=== PATIENT | female | born 1965 | race Caucasian/White ===

== ENCOUNTER 2022-04-20 19:56 | Emergency (ER) | payer SELFPAY ==
[2022-04-20 20:01] VITALS: BP 165/80; PULSE 115; RESP 18; TEMP 36.9; O2SAT 95; BMI 31.1
[2022-04-20] MEDS: predniSONE 20 mg Tablet 60 MG PO (23:08)
[2022-04-20 23:29] VITALS: PULSE 98; RESP 16; O2SAT 95
--- NOTE | 2022-04-21 00:26 | W.ED.GENADLT ---
HPI - General Adult General: Chief complaint: General Medical Stated complaint: joint pain Time Seen by Provider: 04/20/22 22:26 Source: patient and family Mode of arrival: ambulatory Limitations: no limitations History of Present Illness: Patient presents emergency department tonight accompanied by her for evaluation and treatment of recurrence and flareup of previous autoimmune issues. Patient states that she has been seen and evaluated by an autoimmune/visitor services specialist in [place] for several years. Patient states originally she was diagnosed with lupus however, with more investigation, was diagnosed with something the patient is unsure of the name of. She states it is not a polyarthralgia diagnosis but rather the spaces between her joints. Patient states that she was chronically on allopurinol as well as hydroxychloroquine. She states she took these medications for years however, back when COVID first started she was having difficulty getting in to see her warble saw operator and, she was not having any flareups decided to stop her medication. Patient states she has been off these medications now for approximately 2 years and had no previous issues up until approximately 3 days ago. Patient states she noticed onset of achiness which has worsened today. Patient reports a flareup similar to that of which she has experienced in the past she denies any monoarticular arthralgia, redness, pain, or fever. Review of Systems General: Reports: 10 or more systems reviewed and unremarkable except in HPI and below Musc: Reports: extremity pain, extremity swelling, muscle cramps and muscle weakness Physical Exam Const: COMMON NORMALS: no acute distress, patient oriented x3 and alert HENMT: COMMON NORMALS: normocephalic, atraumatic and hearing grossly normal bilaterally HEAD & SCALP: normocephalic and atraumatic Eye: COMMON NORMALS: Equal, round and reactive pupils present, EOMs intact bilaterally and conjunctivae normal CONJUNCTIVA: Yes conjunctivae normal PUPIL: Yes Equal, round and reactive pupils present Neck/C-Spine: COMMON NORMALS: full ROM and no JVD Lymph: LYMPHATIC: no lymphadenopathy noted Resp: COMMON NORMALS: normal respiratory effort, No retractions and No use of accessory muscles Cardio: COMMON NORMALS: no JVD and regular rate RATE: regular rate Extremity: NARRATIVE EXTREMITY EXAM: Patient has some generalized edema noted in her distal upper arms. There is also some faint erythema noted on the skin. Patient appears stiff in her movements here in the ER and does not want to move however, has myalgia on exam versus arthralgia. Patient has full range of motion to the neck. Patient is weightbearing and ambulatory with discomfort noted. Neuro: COMMON NORMALS: patient oriented x3 SENSORIUM/ORIENTATION: Yes alert Psych: COMMON NORMALS: mental status grossly normal, Normal thought process present, cooperative and normal affect THOUGHT PROCESS: Normal thought process present Skin: COMMON NORMALS: no rashes or lesions noted and turgor normal GENERAL SKIN EXAM: no rashes or lesions noted and turgor normal Course Vital Signs: Vital signs: Vital Signs Temperature 98.4 F 04/20/22 20:01 Pulse Rate 98 04/20/22 23:29 Respiratory Rate 16 04/20/22 23:29 Blood Pressure 165/80 04/20/22 20:01 Pulse Oximetry 95 04/20/22 23:29 Oxygen Delivery Me thod 04/20/22 20:01 MDM - General Adult Medical Decision Making They are upPatient presents to the emergency department today with complaints of of underlying, chronic autoimmune disorder. Patient admits she stopped taking her medication and has not seen her warble saw operator in quite some time. I did discuss the patient's case with Dr. Ordoñez who agreed that a burst of steroids to help calm the immune response is appropriate today as she can call her warble saw operator office tomorrow to discuss a follow-up appointment or getting back on her medications. Patient appears nontoxic. I am not concerned for any signs of a septic joint at this time. Patient shows no other sign of illness concerning for influenza or sepsis. Differential Diagnosis Septic joint, myalgias/arthralgias due to influenza or other viral illness, dehydration, rhabdomyolysis, RA, OA Discharge Plan Discharge Patient Disposition: Home Clinical Impression: Myalgia, Hx of autoimmune disorder Condition: Stable Prescriptions: New prednisone 20 mg tablet See Rx Instructions .ROUTE .COMPLEX Qty: 30 0RF Rx Instructions: take 3 tabs daily for 5 days, then take 2 tabs daily for 5 days, then take one tab daily until gone. Discharge Orders: Discharge ED (Routine); Ordered 04/20/22 Ordered By: Sury Terry Referrals: Farideh Faith APN [Primary Care Provider] - Discharge Diet: Usual diet Discharge Activity: Increase activity as tolerated Patient Instructions: Autoimmune Disease (ED) Activity Restrictions/Additional Instructions: Call your warble saw operator as soon as possible to get in for a follow-up appointment. Take this steroid burst to help with the bodies overreaction response which is causing you your pain and discomfort. Watch for any new onset fever or single joint swelling, redness, or significant decrease in range of motion. Coding Level of Care Code ED Military Source Operations Officer for Susanna Trujillo
== END 2022-04-20 23:29 | disposition home or self-care (01) ==
PROVIDERS: Emergency Provider Physician Assistant; PCP Nurse Practitioner Family
DX: M79.10 Myalgia, unspecified site (principal); D89.89 Other specified disorders involving the immune mechanism, not elsewhere classified
CPT/HCPCS: 99283; J7512

== ENCOUNTER 2023-05-13 14:17 | Emergency (ER) | payer OTHER, SELFPAY ==
[2023-05-13 14:23] VITALS: BP 176/114; PULSE 110; RESP 16; TEMP 36.4; O2SAT 98; BMI 34.3
--- NOTE | 2023-05-13 14:41 | ED_ITS ---
Documented by User: JACI Olguin 05/13/23 18:06 HPI - Abdominal Pain 2 General: Chief Complaint: Abdominal Pain Stated Complaint: right side abd pain Time Seen by Provider: 05/13/23 14:34 History of Present Illness: 58-year-old female comes in today with c omplaints of right upper quadrant pain. On exam patient's abdomen is soft with some right upper quadrant tenderness. Patient was referred to the emergency room from primary care and urgent care for further imaging and evaluation. Patient reports no fever, mild nausea, no vomiting, no diarrhea or constipation. Patient has had hysterectomy, appendicitis, and gallbladder removal. Patient reports no chronic medical problems. Associated Symptoms: Reports nausea; Denies constipation, diarrhea and vomiting Review of Systems 2 General: Reports: 10 or more systems reviewed and unremarkable except in HPI and below Card: Denies: chest pain Resp: Denies: dyspnea GI: Reports: abdominal pain and nausea; Denies: vomiting, diarrhea or constipation : Denies: difficulty voiding Musc: Denies: neck pain or back pain Skin/Breast: Denies: rash Physical Exam 2 Const: COMMON NORMALS: alert HENMT: COMMON NORMALS: normocephalic HEAD & SCALP: normocephalic THROAT: posterior oropharynx normal Neck/C-Spine: COMMON NORMALS: full ROM Resp: COMMON NORMALS: normal respiratory effort and clear to auscultation bilaterally AUSCULTATION: clear to auscultation bilaterally Cardio: COMMON NORMALS: regular rate and regular rhythm RATE: regular rate RHYTHM: regular rhythm GI: COMMON NORMALS: Soft to palpation AUSCULTATION: Yes normoactive bowel sounds PALPATION: Yes Soft to palpation and Yes Tenderness to palpation present (GI) Details: RUQ Back/Pelvis: COMMON NORMALS: thoracic and lumbar spine normal to inspection Extremity: COMMON NORMALS: normal to inspection Neuro: SENSORIUM/ORIENTATION: Yes alert Skin: COMMON NORMALS: turgor normal GENERAL SKIN EXAM: turgor normal Course 2 Vital Signs: Vital signs: Vital Signs Temperature 97.6 F 05/13/23 14:23 Pulse Rate 110 H 05/13/23 14:23 Respiratory Rate 16 05/13/23 14:23 Blood Pressure 176/114 05/13/23 14:23 Pulse Oximetry 98 05/13/23 14:23 Oxygen Delivery Me thod Room Air 05/13/23 14:23 MDM - Abdominal Pain Medical Decision Making 58-year-old female comes in today with complaints of right upper quadrant abdominal pain. On exam patient's abdomen is soft with some tenderness in the right upper quadrant. No CVA tenderness. No spinal tenderness. Lungs are clear to auscultation. Bowel sounds are present throughout. Vital signs are normal except for the elevated blood pressure. Differential diagnosis includes but not limited to bowel obstruction, muscle strain, hernia, choledocholithiasis, renal calculi. CBC showed some mild leukocytosis at 11,000. CMP was unremarkable. Urinalysis was clean. CT of the abdomen and pelvis without contrast noted some diverticulosis, some left hip bursitis, but no signs of severe infection or abscess. Reviewed exam with patient with recommendations for treatment and follow-up. I believe patient's pain probably is related to her diverticulosis and she has maybe a mild flare that is not being evident on the CT with signs of infection. Recommend Tylenol and ibuprofen and lots of fluids. Patient reported understanding of care plan need for follow-up or return to the ER for worsening symptoms. Lab Data 05/13/23 14:52 05/13/23 14:52 Labs/Radiology: Radiology Impressions Abdomen/Pelvis CT 05/13/23 17:20 IMPRESSION: 1. No evidence of acute abnormality in the abdomen or pelvis within limitations of a noncontrast exam. Laboratory Results WBC 11.79 10^3/uL (3.29-11.43) H 05/13/23 14:52 RBC 5.11 10^6/uL (3.85-5.65) 05/13/23 14:52 Hgb 15.80 g/dL (11.27-16.99) 05/13/23 14:52 Hct 48.1 % (36-47) H 05/13/23 14:52 MCV 94.1 fl (85-98) 05/13/23 14:52 MCH 30.9 pg (27-33) 05/13/23 14:52 MCHC 32.8 g/dL (30-55) 05/13/23 14:52 RDW 12.4 % (12.1-15.1) 05/13/23 14:52 Plt Count 360 10^3/cmm (157-399) 05/13/23 14:52 MPV 9.1 fL (7.4-10.4) 05/13/23 14:52 Neut % (Auto) 67.6 % 05/13/23 14:52 Lymph % (Auto) 23.1 % 05/13/23 14:52 [place] % (Auto) 7.2 % 05/13/23 14:52 Eos % (Auto) 1.5 % 05/13/23 14:52 Baso % (Auto) 0.3 % 05/13/23 14:52 Neut # (Auto) 7.97 10^3/uL (1.8-7.7) H 05/13/23 14:52 Lymph # (Auto) 2.7 10^3/uL (0.8-4.8) 05/13/23 14:52 [place] # (Auto) 0.9 10^3/uL (0.2-0.9) 05/13/23 14:52 Eos # (Auto) 0.2 10^3/uL (0.0-0.8) 05/13/23 14:52 Baso # (Auto) 0.0 10^3/uL (0.0-0.1) 05/13/23 14:52 Nucleated RBC % (auto) 0 % 05/13/23 14:52 Nucleated RBCs # 0.0 /100WBC 05/13/23 14:52 Sodium 137 mmol/L (136-145) 05/13/23 14:52 Potassium 3.9 mmol/L (3.5-5.1) 05/13/23 14:52 Chloride 98 mmol/L (98-107) 05/13/23 14:52 Carbon Dioxide 26 mmol/L (22-29) 05/13/23 14:52 Anion Gap 16.9 (5-19) 05/13/23 14:52 BUN 9 mg/dL (6-20) 05/13/23 14:52 Creatinine 0.8 mg/dL (0.5-0.9) 05/13/23 14:52 GFR Calculation 73.9 mL/min (90-130) L 05/13/23 14:52 Glucose 99 mg/dL (65-115) 05/13/23 14:52 Calculated Osmolality 283 mOsm/kg (285-295) L 05/13/23 14:52 Calcium 9.8 mg/dL (8.5-10.5) 05/13/23 14:52 Total Bilirubin 0.4 mg/dL (0.15-1.2) 05/13/23 14:52 AST 19 U/L (0-32) 05/13/23 14:52 ALT 31 U/L (0-33) 05/13/23 14:52 Alkaline Phosphatase 100 U/L (35-105) 05/13/23 14:52 Total Protein 8.1 g/dL (6.6-8.7) 05/13/23 14:52 Albumin 4.4 g/dL (3.5-5.2) 05/13/23 14:52 Globulin 3.7 g/dL (1.3-4.6) 05/13/23 14:52 Lipase 33 U/L (13-60) 05/13/23 14:52 Urine Color Light yellow (Yellow) 05/13/23 16:55 Urine Appearance Clear (CLEAR) 05/13/23 16:55 Urine pH 6 (5-7) 05/13/23 16:55 Ur Specific Keiser 1.010 (1.005-1.030) 05/13/23 16:55 Urine Protein Neg (Negative) 05/13/23 16:55 Urine Glucose (UA) Norm (Normal) 05/13/23 16:55 Urine Ketones Negative (Negative) 05/13/23 16:55 Urine Blood Neg (Negative) 05/13/23 16:55 Urine Nitrate Negative (Negative) 05/13/23 16:55 Urine Bilirubin Neg (Negative) 05/13/23 16:55 Urine Urobilinogen Norm mg/dL (Negative) 05/13/23 16:55 Ur Leukocyte Esterase Negative (Negative) 05/13/23 16:55 All radiology interpretation(s) finalized by discharge Discharge Plan Discharge Patient Disposition: Home Clinical Impression: Diverticulosis Abdominal pain Qualifiers: Abdominal location: right upper quadrant Qualified Code(s): R10.11 - Right upper quadrant pain Condition: Stable Prescriptions: No Action Tylenol Ex Str Rapid Release 500 mg Tablet 500 mg PO Q6H PRN (Reason: Pain) ibuprofen 200 mg Tablet 200 mg PO Q6H PRN (Reason: Pain) Discharge Orders: Discharge ED (Routine); Ordered 05/13/23 Ordered By: Chidi Hogue Referrals: Faith,KILEY Gong [Primary Care Provider] - Discharge Diet: Usual diet Discharge Activity: Increase activity as tolerated Patient Instructions: Abdominal Pain (ED) Activity Restrictions/Additional Instructions: Drink plenty of water and fluids. Light diet until abdominal pain resolves. Use acetaminophen or ibuprofen for pain and discomfort. Follow-up with primary care in 1 week for recheck. Return to ED for worsening symptoms such as high fever greater than 100.4, blood in vomit or stool, or new concerns. Coding Level of Care Code ED Veterinary Technology Instructor for Chg [employer] Documented by User: Harsh Dewey DO 05/13/23 18:15 HPI - Abdominal Pain 2 General: Chief Complaint: Abdominal Pain Stated Complaint: right side abd pain Time Seen by Provider: 05/13/23 14:34 Course 2 Vital Signs: Vital signs: Vital Signs Temperature 97.6 F 05/13/23 14:23 Pulse Rate 110 H 05/13/23 14:23 Respiratory Rate 16 05/13/23 14:23 Blood Pressure 176/114 05/13/23 14:23 Pulse Oximetry 98 05/13/23 14:23 Oxygen Delivery Me thod Room Air 05/13/23 14:23 MDM - Abdominal Pain Medical Decision Making 58-year-old female comes in today with complaints of right upper quadrant abdominal pain. On exam patient's abdomen is soft with some tenderness in the right upper quadrant. No CVA tenderness. No spinal tenderness. Lungs are clear to auscultation. Bowel sounds are present throughout. Vital signs are normal except for the elevated blood pressure. Differential diagnosis includes but not limited to bowel obstruction, muscle strain, hernia, choledocholithiasis, renal calculi. CBC showed some mild leukocytosis at 11,000. CMP was unremarkable. Urinalysis was clean. CT of the abdomen and pelvis without contrast noted some diverticulosis, some left hip bursitis, but no signs of severe infection or abscess. Reviewed exam with patient with recommendations for treatment and follow-up. I believe patient's pain probably is related to her diverticulosis and she has maybe a mild flare that is not being evident on the CT with signs of infection. Recommend Tylenol and ibuprofen and lots of fluids. Patient reported understanding of care plan need for follow-up or return to the ER for worsening symptoms. Chart reviewed and patient discussed with midlevel. Agree with assessment and plan. Lab Data 05/13/23 14:52 05/13/23 14:52 Labs/Radiology: Radiology Impressions Abdomen/Pelvis CT 05/13/23 17:20 IMPRESSION: 1. No evidence of acute abnormality in the abdomen or pelvis within limitations of a noncontrast exam. Laboratory Results WBC 11.79 10^3/uL (3.29-11.43) H 05/13/23 14:52 RBC 5.11 10^6/uL (3.85-5.65) 05/13/23 14:52 Hgb 15.80 g/dL (11.27-16.99) 05/13/23 14:52 Hct 48.1 % (36-47) H 05/13/23 14:52 MCV 94.1 fl (85-98) 05/13/23 14:52 MCH 30.9 pg (27-33) 05/13/23 14:52 MCHC 32.8 g/dL (30-55) 05/13/23 14:52 RDW 12.4 % (12.1-15.1) 05/13/23 14:52 Plt Count 360 10^3/cmm (157-399) 05/13/23 14:52 MPV 9.1 fL (7.4-10.4) 05/13/23 14:52 Neut % (Auto) 67.6 % 05/13/23 14:52 Lymph % (Auto) 23.1 % 05/13/23 14:52 [place] % (Auto) 7.2 % 05/13/23 14:52 Eos % (Auto) 1.5 % 05/13/23 14:52 Baso % (Auto) 0.3 % 05/13/23 14:52 Neut # (Auto) 7.97 10^3/uL (1.8-7.7) H 05/13/23 14:52 Lymph # (Auto) 2.7 10^3/uL (0.8-4.8) 05/13/23 14:52 [place] # (Auto) 0.9 10^3/uL (0.2-0.9) 05/13/23 14:52 Eos # (Auto) 0.2 10^3/uL (0.0-0.8) 05/13/23 14:52 Baso # (Auto) 0.0 10^3/uL (0.0-0.1) 05/13/23 14:52 Nucleated RBC % (auto) 0 % 05/13/23 14:52 Nucleated RBCs # 0.0 /100WBC 05/13/23 14:52 Sodium 137 mmol/L (136-145) 05/13/23 14:52 Potassium 3.9 mmol/L (3.5-5.1) 05/13/23 14:52 Chloride 98 mmol/L (98-107) 05/13/23 14:52 Carbon Dioxide 26 mmol/L (22-29) 05/13/23 14:52 Anion Gap 16.9 (5-19) 05/13/23 14:52 BUN 9 mg/dL (6-20) 05/13/23 14:52 Creatinine 0.8 mg/dL (0.5-0.9) 05/13/23 14:52 GFR Calculation 73.9 mL/min (90-130) L 05/13/23 14:52 Glucose 99 mg/dL (65-115) 05/13/23 14:52 Calculated Osmolality 283 mOsm/kg (285-295) L 05/13/23 14:52 Calcium 9.8 mg/dL (8.5-10.5) 05/13/23 14:52 Total Bilirubin 0.4 mg/dL (0.15-1.2) 05/13/23 14:52 AST 19 U/L (0-32) 05/13/23 14:52 ALT 31 U/L (0-33) 05/13/23 14:52 Alkaline Phosphatase 100 U/L (35-105) 05/13/23 14:52 Total Protein 8.1 g/dL (6.6-8.7) 05/13/23 14:52 Albumin 4.4 g/dL (3.5-5.2) 05/13/23 14:52 Globulin 3.7 g/dL (1.3-4.6) 05/13/23 14:52 Lipase 33 U/L (13-60) 05/13/23 14:52 Urine Color Light yellow (Yellow) 05/13/23 16:55 Urine Appearance Clear (CLEAR) 05/13/23 16:55 Urine pH 6 (5-7) 05/13/23 16:55 Ur Specific Keiser 1.010 (1.005-1.030) 05/13/23 16:55 Urine Protein Neg (Negative) 05/13/23 16:55 Urine Glucose (UA) Norm (Normal) 05/13/23 16:55 Urine Ketones Negative (Negative) 05/13/23 16:55 Urine Blood Neg (Negative) 05/13/23 16:55 Urine Nitrate Negative (Negative) 05/13/23 16:55 Urine Bilirubin Neg (Negative) 05/13/23 16:55 Urine Urobilinogen Norm mg/dL (Negative) 05/13/23 16:55 Ur Leukocyte Esterase Negative (Negative) 05/13/23 16:55 Discharge Plan Discharge Patient Disposition: Home Clinical Impression: Diverticulosis Abdominal pain Qualifiers: Abdominal location: right upper quadrant Qualified Code(s): R10.11 - Right upper quadrant pain Condition: Stable Prescriptions: No Action Tylenol Ex Str Rapid Release 500 mg Tablet 500 mg PO Q6H PRN (Reason: Pain) ibuprofen 200 mg Tablet 200 mg PO Q6H PRN (Reason: Pain) Discharge Orders: Discharge ED (Routine); Ordered 05/13/23 Ordered By: Chidi Hogue Referrals: Farideh Faith APN [Primary Care Provider] - Discharge Diet: Usual diet Discharge Activity: Increase activity as tolerated Patient Instructions: Abdominal Pain (ED) Activity Restrictions/Additional Instructions: Drink plenty of water and fluids. Light diet until abdominal pain resolves. Use acetaminophen or ibuprofen for pain and discomfort. Follow-up with primary care in 1 week for recheck. Return to ED for worsening symptoms such as high fever greater than 100.4, blood in vomit or stool, or new concerns. Coding Level of Care Code ED Veterinary Technology Instructor for Susanna Trujillo
[2023-05-13 15:00] LABS: Basophils % 0.3 %; Eosinophils # 0.2 10^3/uL (0.0-0.8); Eosinophils % 1.5 %; Hematocrit 48.1 % (36-47); Lymphocytes # 2.7 10^3/uL (0.8-4.8); Lymphocytes % 23.1 %; Mean Corpuscular HGB Conc 32.8 g/dL (30-55); Mean Corpuscular Hemoglobin 30.9 pg (27-33); Mean Corpuscular Volume 94.1 fl (85-98); Mean Platelet Volume 9.1 fL (7.4-10.4); Monocytes # 0.9 10^3/uL (0.2-0.9); Monocytes % 7.2 %; Neutrophils # 7.97 10^3/uL (1.8-7.7); Neutrophils % 67.6 %; Nucleated Red Blood Cells % 0 %; Platelet Count 360 10^3/cmm (157-399); Red Blood Count 5.11 10^6/uL (3.85-5.65); Red Cell Distribution Width 12.4 % (12.1-15.1); White Blood Count 11.79 10^3/uL (3.29-11.43)
[2023-05-13 15:29] LABS: Alanine Aminotransferase 31 U/L (0-33); Albumin Level 4.4 g/dL (3.5-5.2); Alkaline Phosphatase 100 U/L (35-105); Anion Gap 16.9 (5-19); Aspartate Amino Transferase 19 U/L (0-32); Blood Urea Nitrogen 9 mg/dL (6-20); Calcium 9.8 mg/dL (8.5-10.5); Carbon Dioxide 26 mmol/L (22-29); Chloride 98 mmol/L (98-107); Globulin 3.7 g/dL (1.3-4.6); Glomerular Filtration Rate 73.9 mL/min (90-130); Glucose 99 mg/dL (65-115); Lipase 33 U/L (13-60); Osmolality Calculated 283 mOsm/kg (285-295); Potassium 3.9 mmol/L (3.5-5.1); Sodium 137 mmol/L (136-145); Total Bilirubin 0.4 mg/dL (0.15-1.2); Total Protein 8.1 g/dL (6.6-8.7)
[2023-05-13 17:17] LABS: Add Urine Microscopic? NO; Charge for UA Resulting for Rev
--- NOTE | 2023-05-13 17:20 | CTR_ITS ---
PROCEDURE INFORMATION: Exam: CT Abdomen And Pelvis Without Contrast Exam date and time: 05/13/2023 5:23 PM Age: 58 years old Clinical indication: Abdominal pain; Prior surgery; Surgery date: 6+ months; Surgery type: Hysy, gb, appy; Additional info: Abd pain TECHNIQUE: Imaging protocol: Computed tomography of the abdomen and pelvis without contrast. Radiation optimization: All CT scans at this facility use at least one of these dose optimization techniques: automated exposure control; mA and/or kV adjustment per patient size (includes targeted exams where dose is matched to clinical indication); or iterative reconstruction. COMPARISON: No relevant prior studies available. RADIATION DOSE METRICS: Total DLP (mGy-cm): 795 FINDINGS: Lungs: Subsegmental bibasilar atelectasis. The visualized lung bases are otherwise clear. Diaphragm: No evidence of diaphragmatic defect. Liver: No evidence of focal hepatic lesion within limitation of a noncontrast exam. Gallbladder and bile ducts: Status post cholecystectomy. No evidence of intrahepatic or extrahepatic biliary dilatation. Pancreas: Grossly unremarkable. Spleen: Grossly unremarkable. Adrenal glands: Grossly unremarkable. Kidneys and ureters: No gross renal parenchymal abnormality. No evidence of hydronephrosis or ureteral stone. Stomach and bowel: Diverticulosis without evidence of acute diverticulitis. No bowel obstruction or perienteric inflammatory changes. There is prominence of the gastric submucosal fat suggestive of sequela of chronic inflammation. Appendix: The appendix is not visualized, however there are no findings to suggest appendicitis. Intraperitoneal space: No evidence of free air or fluid collection. Vasculature: No evidence of aneurysmal dilitation of abdominal aorta. Evaluation for vascular injury or thombosis is limited by lack of IV contrast. Lymph nodes: No evidence of adenopathy. Urinary bladder: Grossly unremarkable. Reproductive: Status post hysterectomy. Bones/joints: No evidence of acute fracture or aggresive osseous lesion. There is left iliopsoas bursitis. Soft tissues: No evidence of fluid collection, hematoma or mass-like lesion in the superficial soft tissues within limitations of a noncontrast exam. CT/CT abdomen pelvis con [id number] IMPRESSION: 1. No evidence of acute abnormality in the abdomen or pelvis within limitations of a noncontrast exam.
[2023-05-13 17:30] LABS: Bilirubin Urine Neg (Negative); Blood Urine Neg (Negative); Glucose Urine UA Norm (Normal); Ketones Urine Negative (Negative); Leukocyte Esterase Urine Negative (Negative); Nitrate Urine Negative (Negative); Protein Urine Neg (Negative); Urine Appearance Clear (CLEAR); Urine Color Light yellow (Yellow); Urobilinogen Urine Norm (Negative); pH Urine 6 (5-7)
== END 2023-05-13 18:28 | disposition home or self-care (01) ==
PROVIDERS: Emergency Medicine; Emergency Provider Nurse Practitioner Family; PCP Nurse Practitioner Family
DX: K57.90 Diverticulosis of intestine, part unspecified, without perforation or abscess without bleeding (principal); R10.11 Right upper quadrant pain
CPT/HCPCS: 36415; 74176; 80053; 81003; 83690; 85025; 99284

== ENCOUNTER 2023-06-10 09:09 | Outpatient (CLI) | payer OTHER, SELFPAY ==
--- NOTE | 2023-06-10 09:18 | MM_ITS ---
WS: [id number] BILATERAL SCREENING DIGITAL TOMOSYNTHESIS MAMMOGRAM WITH CAD HISTORY: SCREENING COMPARISON: 12/27/2008 Bilateral CC and MLO views with tomosynthesis and synthetic mammography submitted. Computer aided det ection analyzed. Breast composition: The breasts are heterogeneously dense, which may obscure small masses. No suspici ous masses, microcalcifications or architectural distortion. Scattered asymmetries and calcifications are similar or improved since the prior study. IMPRESSION: MM/[place] [id number] BI-RADS: 2-Benign FOLLOW UP: 1 Year Follow-up
== END 2023-06-10 09:10 | disposition home or self-care (01) ==
LOC: RAD 09:10
PROVIDERS: PCP Nurse Practitioner Family; Visit Provider Family Medicine
DX: Z12.31 Encounter for screening mammogram for malignant neoplasm of breast (principal); R92.333 Mammographic heterogeneous density, bilateral breasts; R92.1 Mammographic calcification found on diagnostic imaging of breast; N64.89 Other specified disorders of breast
CPT/HCPCS: 77063; 77067

== ENCOUNTER 2025-01-02 09:17 | Outpatient (CLI) | payer OTHER, SELFPAY ==
--- NOTE | 2025-01-02 09:23 | MM_ITS ---
WS: [id number] Bilateral screening 3D tomosynthesis digital mammogram, 01/02/2025 9:24 AM Clinical Data: SCREENING Comparison: 06/10/2023, 12/27/2008. Findings: No spiculated masses or clustered calcifications are seen. There are no secondary signs of carcinoma. MM/MM scr BI tomosynthesis [id number] Impression: Negative bilateral mammogram unchanged. Recommend annual screening mammograms. BIRADS: 1 - Negative FOLLOW UP: 1 Year Follow-up DENSITY: The breasts are heterogeneously dense, which may obscure small masses. The CAD typing checker was used
== END 2025-01-02 09:18 | disposition home or self-care (01) ==
LOC: RAD 09:17
PROVIDERS: PCP Family Medicine; Visit Provider Family Medicine
DX: Z12.31 Encounter for screening mammogram for malignant neoplasm of breast (principal); R92.333 Mammographic heterogeneous density, bilateral breasts
CPT/HCPCS: 77063; 77067